=== PATIENT | male | born 1970 | race Caucasian/White ===

== ENCOUNTER → 2022-02-22 16:10 | Outpatient (BNVA) | payer OTHER, SELFPAY | PROVIDERS: PCP Family Medicine Adult Medicine; Visit Provider Family Medicine Adult Medicine | DX: K91.1 Postgastric surgery syndromes (principal); R63.4 Abnormal weight loss; R03.0 Elevated blood-pressure reading, without diagnosis of hypertension; G47.00 Insomnia, unspecified | CPT/HCPCS: 80053; 83036; 84443; 85025 ==

== ENCOUNTER 2024-01-15 20:31 | Emergency (ER) | payer OTHER, SELFPAY ==
[2024-01-15 20:37] VITALS: BP 167/88; PULSE 71; RESP 16; TEMP 36.6; O2SAT 98; BMI 19.8
--- NOTE | 2024-01-15 21:26 | CTR_ITS ---
PROCEDURE INFORMATION: Exam: CT Head Without Contrast Exam date and time: 01/15/2024 9:32 PM Age: 53 years old Clinical indication: Numbness / parasthesia; Additional info: Left arm numbness TECHNIQUE: Imaging protocol: Computed tomography of the head without contrast. Radiation optimization: All CT scans at this facility use at least one of these dose optimization techniques: automated exposure control; mA and/or kV adjustment per patient size (includes targeted exams where dose is matched to clinical indication); or iterative reconstruction. COMPARISON: No relevant prior studies available. RADIATION DOSE METRICS: Total DLP (mGy-cm): 1118 FINDINGS: Brain: No acute intracranial hemorrhage. No confluent lobar infarct. No mass effect. Cerebral ventricles: The ventricles and sulci are normal in size and shape for the patient's stated age. Paranasal sinuses: Mucous retention cyst versus polyp in a posterior left ethmoid air cell measuring up to 0.8 cm Mastoid air cells: Visualized mastoid air cells are well aerated. Bones: No acute calvarial fracture. Soft tissues: Visualized soft tissues are unremarkable. CT/CT head wo con* 78327 IMPRESSION: No acute intracranial abnormality. If symptoms persist, consider further evaluation with MRI, if MRI is clinically safe to obtain.
--- NOTE | 2024-01-15 21:27 | ED_ITS ---
HPI - Weakness 2 General: Chief complaint: Weakness Stated complaint: left side tingling weak head still tingling Time Seen by Provider: 01/15/24 21:26 History of Present Illness: 53-year-old male patient comes in today with sudden left arm pain that has now tingling. Patient reports that he continues to have some tingling in his left arm but the pain has resolved. Patient has a history of some mild high blood pressure and some anxiety. Patient denies any other chronic medical problems. Patient does admit to being under more stress lately. Patient does take odlo-nuo-uimrpgh supplements and patient had taken 381 mg aspirin prior to coming to the ER. Patient appears nontoxic. NIH stroke scale is 1. Review of Systems 2 General: Reports: 10 or more systems reviewed and unremarkable except in HPI and below PFSH ED 2 PFSH: Medical History Blood pressure elevated without history of HTN Dumping syndrome Insomnia Weight loss, unintentional Family History Sister Cancer leukemia Grandmother Diabetes Hyperlipidemia Hypertension Mother Diabetes Hyperlipidemia Hypertension Denies family history of CAD (coronary artery disease) Clotting disorder Dementia Chronic kidney disease (CKD) Anesthesia complication Bleeding disorder Lung disease Stroke Social History Smoking and tobacco/nicotine status: current every day tobacco/nicotine user (1ppd) cigarettes Packs smoked per day: 1 Alcohol intake: never Substance/Drug Use: never Adopted: No Caregiver/support person: No Lives independently: Yes Household members: significant other Current occupational status: employed 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 Do you think of yourself as: Straight/Heterosexual Current gender identity: Male Gunjan/Pentecostal: None Special gunjan needs: No Agree to transfusion: Yes Physical Exam 2 Const: COMMON NORMALS: patient oriented x3 and alert HENMT: COMMON NORMALS: normocephalic HEAD & SCALP: normocephalic Neck/C-Spine: COMMON NORMALS: full ROM Resp: COMMON NORMALS: normal respiratory effort and clear to auscultation bilaterally AUSCULTATION: clear to auscultation bilaterally Cardio: COMMON NORMALS: regular rate and regular rhythm RATE: regular rate RHYTHM: regular rhythm GI: COMMON NORMALS: non-tender Back/Pelvis: COMMON NORMALS: thoracic and lumbar spine normal to inspection Extremity: COMMON NORMALS: normal to inspection Neuro: COMMON NORMALS: patient oriented x3, no focal motor deficits and no sensory deficits noted SENSORIUM/ORIENTATION: Yes alert Skin: COMMON NORMALS: turgor normal GENERAL SKIN EXAM: turgor normal Course 2 Vital Signs: Vital signs: Vital Signs Temperature 97.9 F 01/15/24 20:37 Pulse Rate 71 01/15/24 20:37 Respiratory Rate 16 01/15/24 20:37 Blood Pressure 167/88 01/15/24 20:37 Pulse Oximetry 98 01/15/24 20:37 Oxygen Delivery Me thod Room Air 01/15/24 20:37 MDM - Weakness Medical Decision Making 53-year-old male patient comes in today for complaints of right arm discomfort with numbness and tingling following. Patient then reported generalized weakness. Patient also reported a headache. On exam patient appears nontoxic. Respirations are even lungs are clear to auscultation. Vital signs are normal except for some mild elevation of blood pressure. Differential diagnosis includes anxiety, TIA, ACS, electrolyte abnormality. Head CT was normal. CBC CMP were normal. Initial troponin was less than 6. EKG showed a normal sinus rhythm. Patient does admit that he has been under a lot more stress and anxiety lately. Believe this is probably the symptoms he is having. I did recommend follow-up with primary care for further evaluation and recheck of blood pressure. Patient agreed with plan and need for follow-up or return to the ER for worsening symptoms. Lab Data 01/15/24 21:56 01/15/24 21:[address] 01/15/24 21:26 IMPRESSION: No acute intracranial abnormality. If symptoms persist, consider further evaluation with MRI, if MRI is clinically safe to obtain. Laboratory Results WBC 12.07 10^3/uL (3.29-11.43) H 01/15/24 21:56 RBC 4.36 10^6/uL (3.85-5.65) 01/15/24 21:56 Hgb 12.40 g/dL (11.27-16.99) 01/15/24 21:56 Hct 36.8 % (37-53) L 01/15/24 21:56 MCV 84.4 fl (82-101) 01/15/24 21:56 MCH 28.4 pg (27-33) 01/15/24 21:56 MCHC 33.7 g/dL (30-55) 01/15/24 21:56 RDW 13.7 % (12.1-15.1) 01/15/24 21:56 Plt Count 325 10^3/cmm (157-399) 01/15/24 21:56 MPV 9.2 fL (7.4-10.4) 01/15/24 21:56 Neut % (Auto) 60.6 % 01/15/24 21:56 Lymph % (Auto) 27.6 % 01/15/24 21:56 [place] % (Auto) 9.9 % 01/15/24 21:56 Eos % (Auto) 1.3 % 01/15/24 21:56 Baso % (Auto) 0.4 % 01/15/24 21:56 Neut # (Auto) 7.31 10^3/uL (1.8-7.7) 01/15/24 21:56 Lymph # (Auto) 3.3 10^3/uL (0.8-4.8) 01/15/24 21:56 [place] # (Auto) 1.2 10^3/uL (0.2-0.9) H 01/15/24 21:56 Eos # (Auto) 0.2 10^3/uL (0.0-0.8) 01/15/24 21:56 Baso # (Auto) 0.1 10^3/uL (0.0-0.1) 01/15/24 21:56 Nucleated RBC % (auto) 0 % 01/15/24 21:56 Nucleated RBCs # 0.0 /100WBC 01/15/24 21:56 Sodium 140 mmol/L (136-145) 01/15/24 21:56 Potassium 3.8 mmol/L (3.5-5.1) 01/15/24 21:56 Chloride 106 mmol/L (98-107) 01/15/24 21:56 Carbon Dioxide 23 mmol/L (22-29) 01/15/24 21:56 Anion Gap 14.8 (5-19) 01/15/24 21:56 BUN 12 mg/dL (6-20) 01/15/24 21:56 Creatinine 0.7 mg/dL (0.7-1.2) 01/15/24 21:56 GFR Calculation 118.4 mL/min (90-130) 01/15/24 21:56 Glucose 100 mg/dL (65-115) 01/15/24 21:56 Calculated Osmolality 290 mOsm/kg (285-295) 01/15/24 21:56 Calcium 8.7 mg/dL (8.5-10.5) 01/15/24 21:56 Total Bilirubin 0.2 mg/dL (0.15-1.2) 01/15/24 21:56 AST 15 U/L (0-40) 01/15/24 21:56 ALT 14 U/L (0-41) 01/15/24 21:56 Alkaline Phosphatase 95 U/L (40-130) 01/15/24 21:56 Troponin T Baseline < 6 ng/L (0-15) 01/15/24 21:56 Total Protein 6.3 g/dL (6.6-8.7) L 01/15/24 21:56 Albumin 4.2 g/dL (3.5-5.2) 01/15/24 21:56 Globulin 2.1 g/dL (1.3-4.6) 01/15/24 21:56 All radiology interpretation(s) finalized by discharge EKG Data EKG 1: I personally reviewed and interpreted this EKG as follows: EKG interpretation date: 01/15/24 EKG interpretation time: 22:40 Prior EKG tracings: not available for review Interpretation: EKG shows a sinus rhythm with a regular rate at [address] elevation or ectopy is noted. No prior exam was available for comparison. Computer generated interpretation: Sinus rhythm. No previous ECG available for comparison Discharge Plan Discharge Patient Disposition: Home Clinical Impression: Anxiety about health Condition: Stable Prescriptions: No Action dicyclomine 10 mg capsule 10 mg PO TID Qty: 90 1RF hydroxyzine HCl 50 mg tablet 50 mg PO .qhs PRN (Reason: sleep) Qty: 30 5RF Discharge Orders: Discharge ED (Routine); Ordered 01/15/24 Ordered By: David Chu Referrals: Burke Schmid MD [Primary Care Provider] - Discharge Diet: Usual diet Discharge Activity: Increase activity as tolerated Patient Instructions: Anxiety (ED) Activity Restrictions/Additional Instructions: Home and rest. Follow-up with primary care for recheck. Return to ED for worsening symptoms or new concerns. Thank you for choosing [facility] for your healthcare needs today. Please realize this is an emergency room and that we are providing you with a medical screening exam and this may not be complete and all inclusive of all the testing and or work up that you may need to determine your ailment or severity of your illness. You have been screened and evaluated and felt safe for discharge. Health conditions do change or evolve sometimes and as such it is important that you follow up with your Primary Doctor to be re checked, 3-5 days is a general good time frame for follow up. You are always welcome to return to the ED for re assessment if your symptoms are worsening or you have new concerns Coding Level of Care Code ED Rubber Flap Cutter for Chg Fwd Related Data Previous Rx's Medication Instructions Recorded dicyclomine 10 mg capsule 10 mg PO TID Loose bowel movements 02/22/22 #90 caps hydroxyzine HCl 50 mg tablet 50 mg PO .qhs PRN sleep #30 tabs 03/12/23 Allergies Allergy/AdvReac Type Severity Reaction Status Date / Time No Known Allergies Allergy Verified 03/08/22 06:38
--- NOTE | 2024-01-15 21:43 | ECG_ITS ---
[facility] Test Date: 2024-01-15 Pat Name: Riaz Chung Department: Room: Gender: Male Pet Feeder: : [id number] Requested By: David Stewart Order Number: [id number] Yevgeniy MD: Jonn Mackenzie M.D. Measurements Intervals [place] Rate: 62 P: 69 NV: 159 QRS: 76 QRSD: 88 T: 67 QT: 398 QTc: 406 Interpretive Statements SINUS RHYTHM No previous ECG available for comparison Electronically Signed On 01-15-2024 23:23:44 CDT by Jonn Mackenzie M.D. [email or web address]
[2024-01-15 22:02] LABS: Basophils # 0.1 10^3/uL (0.0-0.1); Basophils % 0.4 %; Eosinophils # 0.2 10^3/uL (0.0-0.8); Eosinophils % 1.3 %; Hematocrit 36.8 % (37-53); Lymphocytes # 3.3 10^3/uL (0.8-4.8); Lymphocytes % 27.6 %; Mean Corpuscular HGB Conc 33.7 g/dL (30-55); Mean Corpuscular Hemoglobin 28.4 pg (27-33); Mean Corpuscular Volume 84.4 fl (82-101); Mean Platelet Volume 9.2 fL (7.4-10.4); Monocytes # 1.2 10^3/uL (0.2-0.9); Monocytes % 9.9 %; Neutrophils # 7.31 10^3/uL (1.8-7.7); Neutrophils % 60.6 %; Nucleated Red Blood Cells % 0 %; Platelet Count 325 10^3/cmm (157-399); Red Blood Count 4.36 10^6/uL (3.85-5.65); Red Cell Distribution Width 13.7 % (12.1-15.1); White Blood Count 12.07 10^3/uL (3.29-11.43)
[2024-01-15 22:21] LABS: Troponin(5th) Baseline < 6 ng/L (0-15)
[2024-01-15 22:22] LABS: Alanine Aminotransferase 14 U/L (0-41); Albumin Level 4.2 g/dL (3.5-5.2); Alkaline Phosphatase 95 U/L (40-130); Anion Gap 14.8 (5-19); Aspartate Amino Transferase 15 U/L (0-40); Blood Urea Nitrogen 12 mg/dL (6-20); Calcium 8.7 mg/dL (8.5-10.5); Carbon Dioxide 23 mmol/L (22-29); Chloride 106 mmol/L (98-107); Creatinine Clr Calc Pharmacy 123.9892; Globulin 2.1 g/dL (1.3-4.6); Glomerular Filtration Rate 118.4 mL/min (90-130); Glucose 100 mg/dL (65-115); Osmolality Calculated 290 mOsm/kg (285-295); Potassium 3.8 mmol/L (3.5-5.1); Sodium 140 mmol/L (136-145); Total Bilirubin 0.2 mg/dL (0.15-1.2); Total Protein 6.3 g/dL (6.6-8.7)
== END 2024-01-15 23:23 | disposition home or self-care (01) ==
PROVIDERS: Emergency Provider Nurse Practitioner Family; PCP Family Medicine Adult Medicine
DX: F41.9 Anxiety disorder, unspecified (principal); F17.210 Nicotine dependence, cigarettes, uncomplicated
CPT/HCPCS: 70450; 80053; 84484; 85025; 93005; 99284

== ENCOUNTER → 2024-03-14 15:08 | Outpatient (BNVA) | payer OTHER, SELFPAY | PROVIDERS: PCP Family Medicine Adult Medicine; Visit Provider Nurse Practitioner | DX: R39.9 Unspecified symptoms and signs involving the genitourinary system (principal) | CPT/HCPCS: 81000 ==

== ENCOUNTER 2024-06-16 07:26 | Day surgery (SDC) | payer OTHER, SELFPAY ==
[2024-06-16 07:35] VITALS: BP 129/91; PULSE 91; RESP 16; TEMP 36.1; O2SAT 99
[2024-06-16] MEDS: sodium chloride 0.9% 500 ML 15 ML IV (07:47)
--- NOTE | 2024-06-16 08:20 | P.ANESASSM_ITS ---
Pre-Anesthetic Assessment Height/Weight: Height 5 ft 11 in Weight 152 lb Temp Pulse Resp BP Pulse Ox O2 Del Method 97.0 F L 91 16 129/91 99 Room Air 06/16/24 07:35 06/16/24 07:35 06/16/24 07:35 06/16/24 07:35 06/16/24 07:35 06/16/24 07:35 Preop Diagnosis: Screening colonoscopy Operation Date: 06/16/24 08:30 Proposed Procedures p Colonoscopy 86189, G0105, Z12.11(Not Applicable) - James Wilkerson DO Was Beta Konstantin taken within 24 hours: N/A Was Clonidine taken within 24 hours: N/A Last intake: Intake Last Liquid Date 06/15/24 Last Liquid Time 21:00 Last Solid Date 06/14/24 Last Solid Time 17:00 Social Tobacco and No alcohol Exam alert, oriented x 3, clear to auscultation bilaterally and regular rate & rhythm Airway Submandibular: within normal limits Cervical ROM: within normal limits Mallampati: Class II Dentition: false Anesthetic Plan ASA status: 2 Anesthesia: MAC Other: Patient reports no issues with anesthesia Completed bowel prep Current smoker Denies any cardiac issues Prior EKG showing sinus rhythm METs greater than 4 Plan for MAC anesthetic Medications/Allergies Home Medications Medication Instructions Recorded Confirmed Last Taken Type hydroxyzine HCl 50 mg tablet 50 mg PO .qhs PRN sleep #90 tabs 05/11/24 06/14/24 06/13/24 Rx Allergies Allergy/AdvReac Type Severity Reaction Status Date / Time No Known Allergies Allergy Verified 05/20/24 10:51 Current Medications Generic Name Dose Route Start Last Admin Trade Name Freq PRN Reason Stop Dose Admin Sodium Chloride 500 mls @ 15 mls/hr 06/16/24 07:27 06/16/24 07:47 Sodium Chloride 0.9% IV 06/17/24 07:26 15 mls/hr .Q24H PRN Administration COLONOSCOPY FLUIDS PFSH Anesthesia Medical History Nicotine dependence, cigarettes, uncomplicated Screening for colorectal cancer Insomnia Blood pressure elevated without history of HTN Dumping syndrome Family History Sister Cancer leukemia Grandmother Diabetes Hyperlipidemia Hypertension Mother Diabetes Hyperlipidemia Hypertension Denies family history of CAD (coronary artery disease) Clotting disorder Dementia Chronic kidney disease (CKD) Anesthesia complication Bleeding disorder Lung disease Stroke Social History Smoking and tobacco/nicotine status: current every day tobacco/nicotine user cigarettes Packs smoked per day: 1 [ Other cigarette details: started age 16; ] Alcohol intake: never Substance/Drug Use: never Adopted: No Caregiver/support person: No Lives independently: Yes Household members: spouse Marital status: Number of children: 1 Highest education level completed: Bachelor's Degree Current occupational status: employed 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
--- NOTE | 2024-06-16 08:55 | W.PM.OPSUD ---
Surgery/Procedure H&P Update DATE OF PROCEDURE: June 16, 2024 DATE H&P PERFORMED: 05/20/24 H&P UPDATE INFORMATION: I have reviewed H&P completed within last 30 days, I have examined patient prior to procedure and No changes to prior documentation PREOP DIAGNOSIS: Screening colonoscopy PLANNED PROCEDURE: Operation Date: 06/16/24 08:30 Proposed Procedures p Colonoscopy 74312, G0105, Z12.11(Not Applicable) - James Wilkerson DO
[2024-06-16 09:14] VITALS: BP 128/80; PULSE 73; RESP 16; TEMP 36.2; O2SAT 97
--- NOTE | 2024-06-16 09:15 | ANE.PACU2 ---
Inpatient post-anesthesia follow up: Airway intact: Yes Vital signs: Temperature 97.2 F Pulse Rate 73 Respiratory Rate 16 Blood Pressure 128/80 Pulse Oximetry 97 Oxygen Delivery Me thod Room Air Oxygen Flow Rate Fraction of Inspir ed Oxygen Hydration adequate: Yes Nausea and vomiting: No Pain level: 1 Mental status: Baseline
[2024-06-16 09:26] VITALS: BP 124/81; PULSE 66; RESP 16; O2SAT 99
== END 2024-06-16 09:43 | disposition home or self-care (01) ==
PROVIDERS: PCP Nurse Practitioner Family; Visit Provider Surgery
PROC: 0DJD8ZZ Inspection of Lower Intestinal Tract, Via Natural or Artificial Opening Endoscopic (ICD-10-PCS; CPT 45378; principal; 2024-06-16 08:30)
DX: Z12.11 Encounter for screening for malignant neoplasm of colon (principal); F17.210 Nicotine dependence, cigarettes, uncomplicated
CPT/HCPCS: 45378; J2704; J7040